=== PATIENT | female | born 1980 ===

== ENCOUNTER 2023-04-01 09:28 | Outpatient (OUT) | payer OTHER, SELFPAY ==
--- NOTE | 2023-04-01 | XR_ITS ---
The [address] [address] Patient Name: GÓMEZ YUAN MRN: [id number] date: 1980 Sex: F Assigned Patient Location: [facility] Current Patient Location: [facility] Accession/Order Number: [id number] Exam Date: 04/01/2023 09:55 Report Date: 04/01/2023 16:13 At the request of: NAOMI BRANDT Procedure: XR ankle LT min 3V PROCEDURE: XR ankle LT min 3V COMPARISON: None. HISTORY: LEFT ANKLE PAIN FINDINGS: BONES:Mixed lytic and sclerotic appearance of the distal fibula likely represents subacute fracture. No new fracture or dislocation SOFT TISSUES:Negative. No visible soft tissue swelling. EFFUSION:None visible. OTHER: Negative. XR/XR ankle LT min 3V IMPRESSION: Healing distal fibular fracture Electronically authenticated by: KERI VIDAL Date: 04/01/2023 16:13
== END 2023-04-01 09:29 | disposition home or self-care (01) ==
LOC: RAD 09:29
PROVIDERS: PCP Orthopaedic Surgery; Visit Provider Orthopaedic Surgery
DX: S82.832D Other fracture of upper and lower end of left fibula, subsequent encounter for closed fracture with routine healing (principal)
CPT/HCPCS: 73610

== ENCOUNTER 2023-04-29 09:13 | Outpatient (OUT) | payer OTHER, SELFPAY ==
--- NOTE | 2023-04-29 | XR_ITS ---
The [address] [address] Patient Name: GÓMEZ YUAN MRN: [id number] date: 1980 Sex: F Assigned Patient Location: Current Patient Location: Accession/Order Number: [id number] Exam Date: 04/29/2023 09:14 Report Date: 04/29/2023 11:33 At the request of: NAOMI BRANDT Procedure: XR ankle LT min 3V PROCEDURE: XR ankle LT min 3V COMPARISON: 04/01/2023. HISTORY: LEFT ANKLE PAIN FINDINGS: BONES:Stable transverse distal fibular fracture with increase in sclerosis. No new fracture or dislocation SOFT TISSUES:Negative. No visible soft tissue swelling. EFFUSION:None visible. OTHER: Negative. XR/XR ankle LT min 3V IMPRESSION: Stable healing distal fibular fracture Electronically authenticated by: KERI VIDAL Date: 04/29/2023 11:33
--- OUTSIDE RECORDS SUMMARY | 2023-04-29 09:20 | XMS_ITS | CCD ---
Author Name Unknown Address [address] [place] [address] Organization [facility] Care Team Providers Care Regional Sales Coordinator Name Role Phone AHSAN LIM Unavailable Unavailable NOT SPECIFIED, Unavailable Unavailable Rashaun Garcia Primary Care Provider [phone] Rashaun Garcia Primary Care Provider RASHAUN GARCIA Primary Care Unavailable Might Rashaun MARSHALL Primary Care Un available Herman HURLEY, Reynaldo Stout Attending Un available Medications Current Medications Medication Drug Class(es) Dates Sig (Normalized) Sig (Original) baclofen 20 mg oral tablet (2 sources) gamma-Aminobutyric Acid-ergic Agonist Start: 09-18-2018 take 1 tablet by mouth once daily as needed for muscle spasms baclofen (LIORESAL) 20 MG tablet Indications: Strain of cervical portion of both trapezius muscles TAKE 1 TABLET BY MOUTH NIGHTLY NEEDED FOR MUSCLE SPASM 30 tablet 3 09/18/2018 Active cetirizine hydrochloride 10 mg oral tablet (2 sources) Histamine-1 Receptor Antagonist Start: 10-03-2017 take 1 tablet by mouth once daily cetirizine (ZYRTEC ALLERGY) 10 MG tablet Take 1 tablet by mouth daily 90 tablet 1 10/03/2017 Active hydrOXYzine hydrochloride 25 mg oral tablet (1 source) Antihistamine Start: 05-12-2019 take 1 tablet by mouth twice daily as needed for anxiety hydrOXYzine (ATARAX) 25 MG tablet Indications: Nervousness Take 1 tablet by mouth 2 times daily as needed for Anxiety 30 tablet 0 05/12/2019 Active ibuprofen 600 mg oral tablet (2 sources) Nonsteroidal Anti-inflammatory Drug Start: 03-22-2018 take 1 tablet by mouth four times daily as needed for pain ibuprofen (ADVIL;MOTRIN) 600 MG tablet Take 1 tablet by mouth 4 times daily as needed for Pain 30 tablet 0 03/22/2018 Active valACYclovir 500 mg oral tablet (2 sources) Herpesvirus Nucleoside Analog DNA Polymerase Inhibitor, Herpes Simplex Virus Nucleoside Analog DNA Polymerase Inhibitor, Herpes Zoster Virus Nucleoside Analog DNA Polymerase Inhibitor Start: 02-09-2018 valACYclovir (VALTREX) 500 MG tablet 24 hr venlafaxine 37.5 mg extended release oral capsule (1 source) Serotonin and Norepinephrine Reuptake Inhibitor Start: 05-12-2019 take 1 capsule by mouth once daily venlafaxine (EFFEXOR XR) 37.5 MG extended release capsule Indications: Nervousness Take 1 capsule by mouth daily 30 capsule 0 05/12/2019 Active Problems Active Problems Problem Classification Problem Date Documented Da te Episodic/Chronic Fracture of lower limb (1 source) Other fracture of upper and lower end of left fibula, initial encounter for closed fracture; Translations: [Other fracture of upper and lower end of left fibula, initial encounter for closed fracture] Onset: 01-23-2023 Episodic Menstrual disorders (1 source) Excessive and frequent menstruation with regular cycle; Translations: [Excessive and frequent menstruation with regular cycle] Onset: 11-06-2017 Chronic Other female genital disorders (1 source) Abnormal uterine and vaginal bleeding, unspecified; Translations: [Abnormal uterine and vaginal bleeding, unspecified] Onset: 11-06-2017 Chronic Other lower respiratory disease (1 source) Cough; Translations: [Cough] Episodic Substance-related disorders (1 source) Nicotine dependence, cigarettes, uncomplicated; Translations: [Nicotine dependence, cigarettes, uncomplicated] Onset: 11-06-2017 Chronic Unclassified (1 source) Patient encounter status; Translations: [Screening breast examination] Past or Other Problems Problem Classification Problem Date Documented Da te Episodic/Chronic Other circulatory disease (2 sources) Elevated blood pressure; Translations: [Elevated blood pressure reading] Onset: 08-25-2014 09-22-2016 Episodic Other connective tissue disease (2 sources) Ganglion of wrist; Translations: [Ganglion cyst of wrist] Onset: 08-25-2014 08-25-2014 Episodic Results Test Name Value Interpretation Reference Range Facility VL Extremity Venous Duplex Carmella Segovia 01-31-2023 VL Extremity Venous Duplex Lower Left Preliminary Technologist Report A left lower extremity venous study was performed. Appeared to be a normal venous study of the visualized veins of the left lower extremity. No evidence of acute or chronic DVT. Normal comparative study of the right common femoral vein. Results were left as a message with Dania at Dr. Sutton's office at 13:35. Court Abstractor: Jabari Padilla, RVT Radiologist Report CLINICAL HISTORY: Pain and swelling. EXAMINATION: Real-time sonogram of the left lower extremity was performed and supplemented with compression, augmentation and color flow Doppler. FINDINGS: Deep Veins: No thrombus. Compression and augmentation: Normal. Venous blood flow: Normal phasic flow. Superficial Veins: No superficial thrombus. Varicosities: None. Collaterals: Unremarkable. Other: Unremarkable. Images of the right common femoral vein demonstrated patency with normal color flow Doppler and augmentation. CONCLUSIONS: Negative study for acute or chronic deep vein thrombosis on the left. Final Signed by: Clifford Gonzalez MD Signed (Electronic Signature): 01.31.2023 9:20 am Transcribed by: Jabari Padilla Transcribed DT/TM: 01.29.2023 3:26 (If Report is Signed, Electronically Signed in Other Vendor System) Normal [facility] XR ANKLE LEFT (MIN 3 VIEWS)o n 01-23-2023 XR ANKLE LEFT (MIN 3 VIEWS) EXAMINATION: THREE XRAY VIEWS OF THE LEFT ANKLE 01/23/2023 6:15 pm COMPARISON: None. HISTORY: ORDERING SYSTEM PROVIDED HISTORY: pain TECHNOLOGIST PROVIDED HISTORY: pain FINDINGS: Nondisplaced fracture of the distal fibula. Ankle mortise and talar dome are intact. Bony mineralization is low normal. IMPRESSION: Nondisplaced fracture of the distal fibula. Interpreted by: Tyrese Reynolds MD Signed by: Tyrese Reynolds MD 01/23/23 Final result Normal [facility] DIGITAL SCREEN W OR WO C AD BILATERALon 11-06-2018 Addendum by Santos Stevenson MD on 11/06/2018 11:46 AM ADDENDUM: Typo in the findings section of the report. Findings should read as follows: The breasts are heterogeneously dense, which may obscure small masses. No suspicious calcifications, masses, or areas of architectural distortion. 2 year stability of calcifications in the left and right breast. No significant interval change since comparison study. [place] No mammographic evid ence of malignancy. BIRADS: BI-RADS 2 BIRADS - CATEGORY 2 Benign, no evidence of malignancy. Normal interval follow-up is recommended in 12 months. OVERALL ASSESSMENT - BENIGN A letter of notification will be sent to the patient regarding the results. [employer] recommends annual mammograms for women 40 years and older. [facility] [place] EXAMINATION: BILATER AL DIGITAL SCREENING MAMMOGRAM, 11/05/2018 TECHNIQUE: CC and MLO views of the left and right breasts were obtained. Computer aided detection was utilized in the interpretation of this exam. 3D tomosynthesis images were obtained. COMPARISON: November 02, 2016 HISTORY: ORDERING SYSTEM PROVIDED HISTORY: Screening breast examination Family history: Maternal grandmother and paternal grandmother Personal history: No personal history. Previous Breast intervention: No previous breast intervention. FINDINGS: Ray dense there are no suspicious calcifications, masses, or areas of architectural distortion. 2 years stability of calcifications in the left and right breast. No significant interval change since comparison study. [place], [place] Danny, pn Incoming R adiant Results From [employer] - 11/06/2018 8:13 AM EDT EXAMINATION: BILATERAL DIGITAL SCREENING MAMMOGRAM, 11/05/2018 TECHNIQUE: CC and MLO views of the left and right breasts were obtained. Computer aided detection was utilized in the interpretation of this exam. 3D tomosynthesis images were obtained. COMPARISON: November 02, 2016 HISTORY: ORDERING SYSTEM PROVIDED HISTORY: Screening breast examination Family history: Maternal grandmother and paternal grandmother Personal history: No personal history. Previous Breast intervention: No previous breast intervention. FINDINGS: Ray dense there are no suspicious calcifications, masses, or areas of architectural distortion. 2 years stability of calcifications in the left and right breast. No significant interval change since comparison study. IMPRESSION: No mammographic evidence of malignancy. BIRADS: BI-RADS 2 BIRADS - CATEGORY 2 Benign, no evidence of malignancy. Normal interval follow-up is recommended in 12 months. OVERALL ASSESSMENT - BENIGN A letter of notification will be sent to the patient regarding the results. [employer] recommends annual mammograms for women 40 years and older. [facility] [place] SURGICAL PATH REPORTon 11-12 SURGICAL PATH REPORT Normal [facility] Comment on above: Result Comment: DIAGNOSISENDOMETRIUM, BI OPSY:SECRETORY [id number]/11/08/2017 Electronically Signed Out by Elissa Gómez D.O.NATURE OF SPECIMENEndometriumCLINICAL FINDINGSNo clinical history providedGROSS DESCRIPTIONThe container is labeled Tiffanie Leilani :1, endometrial curettings .Received in formalin are multiple cardenas fragments of soft tissueembedded with cardenas cloudy mucoid debris with blood clot aggregating1.5 x 1.3 x 0.3 cm. Filtered. One cassette. nsmge/11/08/2017MICROSCOPIC DESCRIPTIONSections demonstrate fragments of endometrium having a secretorypattern. Intraluminal secretions are present. There are alsounremarkable fragments of squamous epithelium and lower uterinesegment. There is no evidence of chronic endometritis, hyperplasia ormalignancy.[facility] [address] [place], [place] [address]Laboratory Director: Michele Tracey M.D.CLIA No. [id number] CAP Accreditation No. [id number] Accession Number: [id number] Performed By: #### P L BIOPSY ####[place] [address] [place], [place] [id number] CBC W Auto Differentialon Age at Specimen Collection = Normal [facility] Comment on above: Performed By: #### CBC Auto Diff ####[place] [place] [address] Performed By: #### H CG,QUAL SERUM ####[address] [place], [place] [id number] Performed By: #### P L BIOPSY ####[address] [place] [address] Abs Neut # 1.8 10 X 3/mm Normal 1.8 - 7.7 [facility] Comment on above: Performed By: #### CBC Auto Diff ####[place] [address] [place] [address] Basophils/100 WBC Auto (Bld) 1 % Normal 0 - 1 [facility] Comment on above: Performed By: #### CBC Auto Diff ####[place] [address] [place] [address] Eosinophils Auto #/vol (Bld) 0.1 10 X 3/mm Normal 0.0 - 0.5 [facility] Comment on above: Performed By: #### CBC Auto Diff ####[address] [place] [address] Eosinophils/100 WBC Auto (Bld) 2 % Normal 0 - 5 [facility] Comment on above: Performed By: #### CBC Auto Diff ####[address] [place] [address] Erythrocyte distribution width Auto Ratio (RBC) 13.0 % Normal 11.5 - 14.5 [facility] Comment on above: Performed By: #### CBC Auto Diff ####[address] [address] [place] [address] Hematocrit Auto Volume Fraction (Bld) 43.4 % Normal 36.0 - 47.0 [facility] Comment on above: Performed By: #### CBC Auto Diff ####[address] [place] [address] Hemoglobin mass conc (Bld) 15.3 g/dL Normal 12.0 - 16.0 [facility] Comment on above: Performed By: #### CBC Auto Diff ####[address] [place] [address] Lymphocytes Auto #/vol (Bld) 2.5 10 X 3/mm Normal 1.0 - 4.0 [facility] Comment on above: Performed By: #### CBC Auto Diff ####[address] [address] [place] [address] Lymphocytes/100 WBC Auto (Bld) 52 % High 20 - 40 [facility] Comment on above: Performed By: #### CBC Auto Diff ####[address] [place] [address] MCH Auto Entitic mass (RBC) 33.5 pg Normal 27.0 - 35.0 [facility] Comment on above: Performed By: #### CBC Auto Diff ####[address] [place] [address] MCHC Auto mass conc (RBC) 35.3 g/dL Normal 32.0 - 36.0 [facility] Comment on above: Performed By: #### CBC Auto Diff ####[address] [place] [address] MCV Auto Entitic volume (RBC) 94.9 fL Normal 80.0 - 100.0 [facility] Comment on above: Performed By: #### CBC Auto Diff ####[address] [place] [address] Monocytes/100 WBC Auto (Bld) 9 % Normal 1 - 15 [facility] Comment on above: Performed By: #### CBC Auto Diff ####[address] [place] [address] Neutrophils/100 WBC Auto (Bld) 37 % Low 50 - 70 [facility] Comment on above: Performed By: #### CBC Auto Diff ####[address] [place] [address] Platelet mean volume Auto Entitic volume (Bld) 7.4 fL Low 7.5 - 11.5 [facility] Comment on above: Performed By: #### CBC Auto Diff ####[address] [place] [address] Platelets Auto #/vol (Bld) 232 uLx10 Normal 150 - 450 [facility] Comment on above: Performed By: #### CBC Auto Diff ####[address] [place] [address] RBC Auto #/vol (Bld) 4.57 10 X 6/mm Normal 4.20 - 5.40 [facility] Comment on above: Performed By: #### CBC Auto Diff ####[address] [place] [address] WBC Auto #/vol (Bld) 4.8 10 X 3/mm Normal 3.7 - 11.0 [facility] Comment on above: Performed By: #### CBC Auto Diff ####[address] [place] [address] hCG, Qualitative-Serumon Internal Control ACCEPTABLE Normal [facility] Comment on above: Performed By: #### HCG,QUAL SERUM ####[address] [place] [address] hCG, Qualitative-Seru m Negative Normal NEGATIVE [facility] Comment on above: Performed By: #### HCG,QUAL SERUM ####[address] [place] [address] CBC W/AUTO DIFFon 10-11-2017 % NEUTROPHILS 50.5 % Normal [facility] ABS BASOPHILS 0.0 K/ul Normal 0.0-0.1 [facility] ABS NEUTROPHILS 3.8 K/ul Normal 1.3-9.1 [facility] Basophils/100 WBC Auto (Bld) 0.5 % Normal [facility] Eosinophils Auto #/vol (Bld) 0.1 10*3/uL Normal 0.1-0.4 [facility] Eosinophils/100 WBC Auto (Bld) 0.7 % Normal [facility] Erythrocyte distribution width Auto Ratio (RBC) 11.9 % Normal 10.8-14.8 [facility] Hematocrit Auto Volume Fraction (Bld) 41.8 % Normal 36.0-48.0 [facility] Hemoglobin mass conc (Bld) 14.3 g/dL Normal 12.0-16.0 [facility] Lymphocytes Auto #/vol (Bld) 3.0 10*3/uL Normal 0.8-5.2 [facility] Lymphocytes/100 WBC Auto (Bld) 40.1 % Normal [facility] MCH Auto Entitic mass (RBC) 31.7 pg Normal 27.0-34.0 [facility] MCHC Auto mass conc (RBC) 34.2 g/dL Normal 31.0-36.0 [facility] MCV Auto Entitic volume (RBC) 92.7 fL Normal 80.-100. [facility] Monocytes Auto #/vol (Bld) 0.6 10*3/uL Normal 0.1-0.9 [facility] Monocytes/100 WBC Auto (Bld) 7.7 % Normal [facility] Platelets Auto #/vol (Bld) 291 10*3/uL Normal 150.-450. [facility] RBC Auto #/vol (Bld) 4.51 10*6/uL Normal 4.00-5.50 [facility] WBC Auto #/vol (Bld) 7.4 10*3/uL Normal 3.7-10.8 [facility] COMPREHENSIVE METABOLIC PANE L WITH GFRon 10-11-2017 Albumin mass conc 4.7 g/dL Normal 3.5-5.2 [facility] ALK PHOS 66 U/L Normal 30-101 [facility] ALT enzyme act/vol 13 U/L Normal 5-40 [facility] Anion gap 3 molar conc 14 mmol/L Normal 10-19 [facility] AST-SGOT 17 U/L Normal 9-40 [facility] Bilirubin.direct mass conc 0.6 mg/dL Normal <1.3 [facility] Calcium mass conc 9.5 mg/dL Normal 8.5-10.5 [facility] Chloride molar conc 100 mmol/L Normal 95-107 [facility] CO2 molar conc 25 mmol/L Normal 19-31 [facility] Creatinine mass conc 0.6 mg/dL Normal 0.6-1.3 [facility] GFR/1.73 sq M predicted among blacks MDRD vol rate/area (S/P/Bld) 135.9 mL/min/1.73 m2 Normal >59 [facility] GFR/1.73 sq M predicted among non-blacks MDRD vol rate/area (S/P/Bld) 117.3 mL/min/1.73 m2 Normal >59 [facility] Comment on above: Result Comment: * ESTIMATED GFR (eGFR) I S CALCULATED FROM SERUM CREATININE AND OTHER VARIABLES AFFECTING ITS VALUE (AGE, RACE, AND SEX). * FOR PATIENT WITH ESTABLISHED CHRONIC KIDNEY DISEASE, THE CHART BELOW DEFINES STAGES WITH eGFR VALUES. Stage 1 90 mL/min/1.73 m2 or greater Stage 2 60-89 mL/min/1.73 m2 Stage 3 30-59 mL/min/1.73 m2 Stage 4 15-29 mL/min/1.73 m2 Stage 5 14 mL/min/1.73 m2 or less Glucose mass conc 77 mg/dL Normal 70-99 [facility] Comment on above: Result Comment: DIAGNOSTIC THRESHOLDS FO R DIABETES AND IMPAIRED FASTING GLUCOSE (IFG) FASTING PLASMA GLUCOSE NORMAL <100 mg/dL IFG 100-125 mg/dL DIABETES >/= 126 mg/dL GESTATIONAL DIABETES >/= 92 mg/dL Potassium molar conc 4.5 mmol/L Normal 3.5-5.4 [facility] Protein mass conc 7.1 g/dL Normal 6.1-8.3 [facility] Sodium molar conc 139 mmol/L Normal 135-146 [facility] Urea nitrogen mass conc 13 mg/dL Normal 8-23 [facility] FREE T4on 10-11-2017 T4 free mass conc 1.37 ng/dL Normal 0.80-1.90 [facility] HIV-1,2 COMBO AG/ABon 2017 HIV-1,2 COMBO AG/AB NON-REACTIVE Normal NON-REACTIV E [facility] Comment on above: Result Comment: [facility] [address], [place], [place] [id number] Director: Michele Tracey M.D.CLIA No. [id number] CAP Accreditation No. [id number] LIPID PANEL (INCLUDES CALCUL ATED LDL)on 10-11-2017 Cholesterol in LDL/Cholesterol in HDL mass ratio 1.8 Normal <3.5 [facility] Cholesterol mass conc 192 mg/dL Normal <200 [facility] Cholesterol.tota l/Cholesterol in HDL mass ratio 3.0 {ratio} Normal <5 [facility] HDL-CHOL 64 mg/dL Normal >39 [facility] Comment on above: Result Comment: HDL <40 mg/dL IS A RISK FACTOR FOR CORONARY HEART DISEASE. HDL >60 mg/dL IS A NEGATIVE RISK FACTOR FOR CORONARY HEART DISEASE. LDL-CHOL, CALCULATED 113 mg/dL Normal <130 [facility] Comment on above: Result Comment: LDL CHOLESTEROL REFERENC E RANGE FOR 0-19 YEARS: DESIRABLE <110 mg/dL, BORDERLINE 110-129, HIGH RISK >130 LDL CHOLESTEROL REFERENCE RANGE FOR ADULTS: DESIRABLE <100 mg/dL, BORDERLINE 130-159, HIGH RISK >160REFERENCE RANGES REVISED 08/05/15 ACCORDING TO NCEP GUIDELINES Triglyceride mass conc 74 mg/dL Normal <150 [facility] VLDL-CHOL, CALCULATED 15 mg/dL Normal <30 [facility] TSHon 10-11-2017 Thyrotropin Qn 0.64 uIU/mL Normal 0.40-4.10 [facility] Encounters Encounter Date Encounter Type Care Provider Facility Start: 01-29-2023 End: 01-30-2023 ambulatory Rashaun Garcia NURSE OFFICE-ACCOUNT INSTALLATION SPECIALIST Facility:[facility] Start: 01-23-2023 End: 01-23-2023 Emergency department patient visit RASHAUN GARCIA [facility] Start: 06-12-2019 End: 06-12-2019 Subsequent hospital visit by physician Rashaun Garcia [facility] Laboratory Comment on above: Cough Start: 11-05-2018 End: 11-07-2018 Subsequent hospital visit by physician [facility] Mammography Room At [facility] Mammography Comment on above: Screening breast exa mination Start: 11-06-2017 End: 11-06-2017 Patient encounter AHSAN LIM Facility:[facility] Procedures Date Procedure Procedure Detail Performing Clinician Start: 11-05-2018 Screening digital br east tomosynthesis bi Ahsan Lim Work Phone: Plan of Treatment Date Care Activity Detail Author Start: 03-20-2020 Cervical cancer screen Cervical canc er screen [place], [place] Comment on above: Postponed from 04/22 (Patient Refused) Start: 03-20-2020 DTaP/Tdap/Td vaccine (1 - Tdap) DTaP/Tdap/Td vaccine (1 - Tdap) [place] Comment on above: Postponed from 04/22 (Patient Refused) Start: 03-20-2020 Pneumococcal 0-64 ye ars Vaccine (1 of 1 - PPSV23) Pneumococcal 0-64 years Vaccine (1 of 1 - PPSV23) [place] Comment on above: Postponed from 04/22 (Patient Refused) Start: 04-16-2019 End: 04-16-2019 Office Visit 04/16/2019 Office Visit Primary Care Rashaun Garcia, NURSE OFFICE - ACCOUNT INSTALLATION SPECIALIST [address] [place] [address] [facility] Start: 10-26-2018 Influenza vaccination Flu vaccine (# 1) [place], [place] Start: 2002 Cervical cancer screen Cervical canc er screen [place], [place] Start: 2000 DTaP/Tdap/Td vaccine (1 - Tdap) DTaP/Tdap/Td vaccine (1 - Tdap) [place] Start: 1994 Varicella Vaccine (1 of 2 - 13+ 2-dose series) Varicella Vaccine (1 of 2 - 13+ 2-dose series) [place] Start: 1987 Pneumococcal 0-64 ye ars Vaccine (1 of 1 - PPSV23) Pneumococcal 0-64 years Vaccine (1 of 1 - PPSV23) [place] Start: 1982 Varicella vaccine (1 of 2 - 2-dose childhood series) Varicella vaccine (1 of 2 - 2-dose childhood series) [place] End: 06-12-2019 COVID-19 Ambulatory COVID-19 Ambulatory Lab Routine Cough 1 Occurrences starting 06/12/2019 until 06/12/2019 [place] Comment on above: 1 Occurrences starti ng 06/12/2019 until 06/12/2019 COVID-19 Ambulatory COVID-19 Amb ulatory Lab Routine Cough 06/12/2019 1:30 PM EDT [place] Immunizations Immunization Date Immunization Notes Care Provider Anibal rosado 12-15-2018 influenza, injectabl e, quadrivalent, preservative free Rashaun Might [place] Payers Date Payer Category Payer Unknown [id number] 2014 Unknown [facility] xxxxxxxxxxxx 2014-Present [phone] [address] [place] [address] xxxxxxxxxxxx [id number] 1981 Unknown [id number] Self-pay Social History Date Type Detail Facility Start: 04-16-2018 End: 06-12-2019 Tobacco smoking status NHIS Current every day smoker [place] Start: 04-16-2018 End: 06-12-2019 Cigarettes smoked current (pack per day) - Reported [place] Start: 06-12-2019 Alcohol intake Current drinke r of alcohol (finding) [place] Start: 05-12-2019 History SDOH Financial 5 [place] Start: 05-12-2019 History SDOH Food Worry 1 [place] Start: 05-12-2019 History SDOH Transpo rt Med 2 [place] Start: 04-12-2015 Alcohol Comment Occ. 3-4 BEERS PER WEEKEND [place] Sex Assigned At Not on file [place] Exposure to SARS-CoV -2 (event) Unable to assess [place] Start: 04-16-2018 Alcohol intake Yes [place], [place] Summary Purpose Family History No Family History Records FoundNo Family History Records FoundNo Family History Records FoundNo Family History Records Found Advance Directives No Advanced Directives Records FoundDocuments on File Type Date Recorded Patient Ground Operations Supervisor Expl anation Advance Directives and Living Will Power of Crate Maker Documents on File Type Date Recorded Patient Ground Operations Supervisor Expl anation Advance Directives and Living Will Power of Crate Maker Assessments Diagnosis Cough Diagnosis Screening breast examination Other screening breast examination Reason for Referral Status Reason Specialty Diagnoses / Procedures Referred By Contact Referred To Contact Authorized Radiology Diagnoses Screening breast examination Procedures ANTONIA DIGITAL SCREEN W OR WO CAD BILATERAL Ahsan Lim MD [address] [place] [address] Additional Source Comments INFORMATION SOURCE (unrecogn ized section and content) DATE CREATED AUTHOR 10/11/2017 [facility] DATE CREATED AUTHOR AUTHOR'S ORGANIZ ATION 12/20/2017 [facility] DATE CREATED AUTHOR AUTHOR'S ORGANIZ ATION 01/26/2023 [facility] General DATE CREATED AUTHOR AUTHOR'S ORGANIZ ATION 01/31/2023 [facility] Reason for Visit (unrecogniz ed section and content) Status Reason Specialty Diagnoses / Procedures Referre d By Contact Referred To Contact Open Radiology Diagnoses Fibrocystic disease of breast Procedures HC MAMMO SCREENING INCL CAD IF PERF Ahsan Lim MD [address] [place] [address] [facility] [address] [address] FOR RECORDS PERTAINING TO PATIENTS WHO ARE OR HAVE BEEN ENROLLED IN A CHEMICAL DEPENDENCY/SUBSTANCEABUSE PROGRAM, SOME INFORMATION MAY BE OMITTED. This clinical summary was aggregated from multiple sources. Caution should be exercised in using it in the provision of clinical care. This summary normalizes information from multiple sources, and as a consequence, information in this document may materially change the coding, format and clinical context of patient data. In addition, data may be omitted in some cases. CLINICAL DECISIONS SHOULD BE BASED ON THE PRIMARY CLINICAL RECORDS. [email or web address] provides no warranty or guarantee of the accuracy or completeness of information in this document.
== END 2023-04-29 09:14 | disposition home or self-care (01) ==
LOC: EC 09:13
PROVIDERS: PCP Orthopaedic Surgery; Visit Provider Orthopaedic Surgery
DX: S82.832D Other fracture of upper and lower end of left fibula, subsequent encounter for closed fracture with routine healing (principal)
CPT/HCPCS: 73610